=== PATIENT | male | born 1980 | race African-American/Black ===

== ENCOUNTER 2024-09-07 17:24 | Emergency (ER) | payer BC ==
[~2024-09-07] VITALS: Ht 162.6 cm; Wt 72.6 kg
[2024-09-07 17:40] VITALS: O2SAT 99
== END 2024-09-07 18:21 | disposition left against medical advice (07) ==
LOC: ER 17:24
DX: R03.0 Elevated blood-pressure reading, without diagnosis of hypertension (principal); R07.89 Other chest pain; Z53.21 Procedure and treatment not carried out due to patient leaving prior to being seen by health care provider
CPT/HCPCS: A4606; A4663

== ENCOUNTER 2024-09-11 15:25 | Emergency (ER) | payer BC | END 2024-09-11 18:46 | disposition left against medical advice (07) | LOC: ER 15:25 | DX: R05.9 Cough, unspecified (principal); Z53.21 Procedure and treatment not carried out due to patient leaving prior to being seen by health care provider ==

== ENCOUNTER 2025-03-18 17:57 | Emergency (ER) | payer BC ==
[~2025-03-18] VITALS: Ht 177.8 cm; Wt 95.3 kg
[2025-03-18 18:01] VITALS: O2SAT 96
[2025-03-18] MEDS ORDERED: ESCI20TA44 MT (18:11)
[2025-03-18] MEDS ORDERED: TRAZ-252 PO (18:11)
[2025-03-18] MEDS ORDERED: BICT1TAB PO (18:11)
[2025-03-18] MEDS: DOXYCYCLINE HYCLATE 100 MG TABLET PO ONE (18:56)
[2025-03-18] MEDS ORDERED: CEPH500C2 PO (18:56)
[2025-03-18] MEDS ORDERED: PRED20TA PO (18:56)
[2025-03-18] MEDS ORDERED: DOXY100C5 PO (18:56)
[2025-03-18] MEDS: ACETAMINOPHEN 500 MG TABLET PO ONE (19:03)
[2025-03-18] MEDS: NEOMY/BACITRA/POLYMYXIN B OINT UD PACKET TP ONE (19:04)
[2025-03-18] MEDS ORDERED: NEOMY/BACITRAC/POLYMI OINT 28.35 GM TUBE ONE (19:05)
== END 2025-03-18 19:35 | disposition home or self-care (01) ==
LOC: ER 18:08
DX: L03.116 Cellulitis of left lower limb (principal); F17.210 Nicotine dependence, cigarettes, uncomplicated; F17.290 Nicotine dependence, other tobacco product, uncomplicated; Z79.52 Long term (current) use of systemic steroids; Z79.899 Other long term (current) drug therapy; Z86.79 Personal history of other diseases of the circulatory system
CPT/HCPCS: 99284; 73620; J7512 ×2; A4606; A4663; A9150